=== PATIENT | female | born 1965 | race Caucasian/White ===

== ENCOUNTER 2016-07-16 06:59 | Emergency (ER) | payer BC ==
[~2016-07-16] VITALS: Ht 165.1 cm; Wt 66.8 kg
[2016-07-16] MEDS ORDERED: OMEPRAZOLE40 M1 PO (07:27)
[2016-07-16] MEDS ORDERED: MIRALAX17 GM PO (07:27)
[2016-07-16] MEDS ORDERED: LO-DOSE ASPIRIN81 M2 PO (07:28)
[2016-07-16] MEDS ORDERED: TYLENOL ARTHRI650 MG PO (07:28)
[2016-07-16] MEDS ORDERED: REGLAN10 MG PO (08:30)
[2016-07-16] MEDS ORDERED: FIORICET,ESG1 TABLET PO (08:30)
[2016-07-16 08:41] VITALS: BP 129/81
== END 2016-07-16 08:48 | disposition home or self-care (01) ==
LOC: EME 06:59
DX: R51 Headache (principal); R03.0 Elevated blood-pressure reading, without diagnosis of hypertension
CPT/HCPCS: 70450; 99281; 99284

== ENCOUNTER → 2017-02-03 | Outpatient (CLI) | payer BC ==
[~2017-02-03] MED LIST: FIORICET,ESG1 TABLET PO; LO-DOSE ASPIRIN81 M2 PO; MIRALAX17 GM PO; OMEPRAZOLE40 M1 PO; REGLAN10 MG PO; TYLENOL ARTHRI650 MG PO
== END | disposition home or self-care (01) ==
LOC: NUC 09:25
DX: R10.13 Epigastric pain (principal); K59.00 Constipation, unspecified; Z86.010 Personal history of colon polyps
CPT/HCPCS: 78226; A9537

== ENCOUNTER 2017-06-19 10:45 | Inpatient (IN) | payer BC ==
[~2017-06-19] VITALS: Ht 165.1 cm; Wt 60.0 kg
[2017-06-19 11:37] LABS: BASOPHIL (%) 0.2 % (0-1); EOSINOPHIL (%) 0 % (0-5); HEMATOCRIT 42.2 % (36.0-46.0); HEMOGLOBIN 14.3 G/DL (11.9-15.5); IMMATURE GRANULOCYTE (%) 0.2 % (0.0-0.7); LYMPHOCYTE (%) 20.3 % (15-42); LYMPHOCYTE COUNT 1.2 K/uL (1.0-2.8); MCH 32.6 PG (29.0-34.0); MCHC 33.9 G/DL (30.0-36.0); MCV 96.3 FL (83-99); MONOCYTE COUNT 0.4 K/uL (0-0.8); NEUTROPHIL (%) 73.3 % (45-76); NEUTROPHIL COUNT 4.4 K/uL (1.8-6.4); PLATELET COUNT 295 K/uL (156-360); RBC DIS.WIDTH-CV 11.6 % (11.8-14.6); RBC DIS.WIDTH-SD 41.1 % (39-53); RED BLOOD COUNT 4.38 M/uL (3.80-5.20)
[2017-06-19 11:50] LABS: CHLORIDE 106 mEq/L (99-109); SODIUM 141 mEq/L (136-147)
[2017-06-19 11:51] LABS: GLUCOSE 88 mg/dL (70-99)
[2017-06-19 11:54] LABS: SERUM ETHYL ALCOHOL < 10 mg/dL
[2017-06-19 11:55] LABS: CREATININE 0.7 mg/dL (0.6-1.3); GFR ESTIMATE (CALCULATED) > 59 mL/min/
[2017-06-19 11:56] LABS: UREA NITROGEN (BUN) 19 mg/dL (9-23)
[2017-06-19 13:17] LABS: APPEARANCE CLEAR ((CLEAR)); BILIRUBIN NEGATIVE; BLOOD NEGATIVE; COLOR YELLOW ((YELLOW)); GLUCOSE (STRIP) NEGATIVE; KETONES 20; LEUKOCYTES NEGATIVE; NITRITE NEGATIVE; PROTEIN (STRIP) NEGATIVE; SPECIFIC GRAVITY 1.012 (1.000-1.030); UROBILINOGEN 0.2 MG/DL (0.2-1.0)
[2017-06-19 13:26] LABS: AMPHETAMINE NEGATIVE (500 ng/mL); BARBITURATES NEGATIVE (200 ng/mL); BENZODIAZEPINES NEGATIVE (150 ng/mL); BUPRENORPHINE NEGATIVE (10 ng/mL); COCAINE NEGATIVE (150 ng/mL); METHADONE NEGATIVE (200 ng/mL); METHAMPHETAMINE NEGATIVE (500 ng/mL); OPIATES (MORPHINE) NEGATIVE (100 ng/mL); OXYCODONE NEGATIVE (100 ng/mL); PHENCYCLIDINE NEGATIVE (25 ng/mL); PROPOXYPHENE NEGATIVE (300 ng/mL); THC CANNABINOIDS NEGATIVE (50 ng/mL); TRICYCLIC ANTIDEPRESSANTS NEGATIVE (300 ng/mL)
[2017-06-19 14:44] VITALS: BP 122/60
[2017-06-19 14:50] VITALS: BP 122/60
[2017-06-19 16:03] VITALS: BP 123/84
[2017-06-20 08:30] VITALS: BP 114/75
[2017-06-20 15:35] VITALS: BP 119/56
[2017-06-21 08:21] VITALS: BP 93/52
[2017-06-21 15:29] VITALS: BP 143/79
[2017-06-22 08:15] VITALS: BP 121/77
[2017-06-22 15:41] VITALS: BP 125/57
[2017-06-23 07:58] VITALS: BP 114/68
[2017-06-23] MEDS ORDERED: HYDROXYZINE PAM25 MG PO (10:00)
== END 2017-06-23 11:05 | disposition home or self-care (01) | DRG 882 ==
LOC: EME 10:45 → EDOF 12:35 → 1WEST 12:35 → ENRESERV 14:29 → 1WEST 14:29
PROVIDERS: Emergency Medicine
DX: F43.23 Adjustment disorder with mixed anxiety and depressed mood (principal); F41.1 Generalized anxiety disorder; F60.9 Personality disorder, unspecified; R45.851 Suicidal ideations; G43.909 Migraine, unspecified, not intractable, without status migrainosus; Z81.8 Family history of other mental and behavioral disorders; Z91.5 Personal history of self-harm; Z79.82 Long term (current) use of aspirin; Z88.2 Allergy status to sulfonamides; Z91.040 Latex allergy status
CPT/HCPCS: 80048; 81003; 85025; 90839; 97150 GO; 97165 GO; 99281; 99284; G0480; Q0177

== ENCOUNTER → 2017-07-04 | Outpatient (CLI) | payer BC ==
[~2017-07-04] MED LIST changes: +HYDROXYZINE PAM25 MG PO
== END | disposition home or self-care (01) ==
LOC: NUC 06-20 08:30
DX: R10.13 Epigastric pain (principal); K59.00 Constipation, unspecified
CPT/HCPCS: 78264; A9541

== ENCOUNTER 2017-07-27 10:29 | Emergency (ER) | payer BC ==
[~2017-07-27] VITALS: Ht 165.1 cm; Wt 56.4 kg
[2017-07-27 11:24] LABS: HEMATOCRIT 44.3 % (36.0-46.0); HEMOGLOBIN 15.1 G/DL (11.9-15.5); MCH 32.1 PG (29.0-34.0); MCHC 34.1 G/DL (30.0-36.0); MCV 94.3 FL (83-99); PLATELET COUNT 284 K/uL (156-360); RBC DIS.WIDTH-CV 11.3 % (11.8-14.6); RBC DIS.WIDTH-SD 39.2 % (39-53); WHITE BLOOD COUNT 5.5 K/uL (4.1-10.2)
[2017-07-27 11:29] LABS: APPEARANCE CLOUDY ((CLEAR)); BILIRUBIN NEGATIVE; BLOOD NEGATIVE; COLOR YELLOW ((YELLOW)); GLUCOSE (STRIP) NEGATIVE; KETONES 80; LEUKOCYTES TRACE; NITRITE NEGATIVE; PROTEIN (STRIP) 30; SPECIFIC GRAVITY 1.016 (1.000-1.030); UROBILINOGEN 0.2 MG/DL (0.2-1.0)
[2017-07-27 11:32] LABS: BACTERIA RARE /HPF; EPITHELIAL CELLS 3+ /HPF; HYALINE CASTS 0-5 /LPF; MUCUS 4+ /LPF; RED BLOOD CELLS 0-5 /HPF (0-5); UCUL ADDED? YES
[2017-07-27 11:34] LABS: ALBUMIN 4.5 g/dL (3.2-4.8)
[2017-07-27 11:35] LABS: CHLORIDE 104 mEq/L (99-109); POTASSIUM 4.3 mEq/L (3.7-5.4); SODIUM 142 mEq/L (136-147)
[2017-07-27 11:37] LABS: GLUCOSE 93 mg/dL (70-99); TOTAL PROTEIN 7.7 g/dL (6.4-8.3)
[2017-07-27 11:39] LABS: TOTAL BILIRUBIN 0.7 mg/dL (0.0-1.0)
[2017-07-27 11:40] LABS: ALKALINE PHOSPHATASE 87 IU/L (3-129)
[2017-07-27 11:41] LABS: CREATININE 0.7 mg/dL (0.6-1.3); GFR ESTIMATE (CALCULATED) > 59 mL/min/
[2017-07-27 11:42] LABS: AST (GOT) 17 IU/L (2-34); UREA NITROGEN (BUN) 8 mg/dL (9-23)
[2017-07-27 11:44] LABS: ALT (GPT) 16 IU/L (3-49); LIPASE 26 U/L (1.0-51.0)
[2017-07-27 13:29] LABS: QUANTITATIVE HCG 4.5 MIU/ML
[2017-07-27] MEDS ORDERED: ULTRAM50 MG PO (15:08)
[2017-07-27 15:39] VITALS: BP 112/69
== END 2017-07-27 15:39 | disposition home or self-care (01) ==
LOC: EME 10:29
DX: R10.9 Unspecified abdominal pain (principal); G89.29 Other chronic pain; M79.7 Fibromyalgia; F41.9 Anxiety disorder, unspecified; F32.9 Major depressive disorder, single episode, unspecified; Z79.82 Long term (current) use of aspirin; Z91.040 Latex allergy status; Z88.2 Allergy status to sulfonamides; Z88.8 Allergy status to other drugs, medicaments and biological substances
CPT/HCPCS: 80053; 81003; 83690; 84702; 85027; 87086; 99281; 99285; J7030

== ENCOUNTER 2017-07-29 12:31 | Observation (INO) | payer BC ==
[~2017-07-29] VITALS: Ht 165.1 cm; Wt 58.2 kg
[~2017-07-29 12:31] MED LIST changes: +ULTRAM50 MG PO
[2017-07-29 12:54] LABS: APPEARANCE CLEAR ((CLEAR)); BILIRUBIN NEGATIVE; BLOOD NEGATIVE; COLOR STRAW ((YELLOW)); GLUCOSE (STRIP) 150; KETONES NEGATIVE; LEUKOCYTES NEGATIVE; NITRITE NEGATIVE; PROTEIN (STRIP) NEGATIVE; SPECIFIC GRAVITY 1.008 (1.000-1.030); UCUL ADDED? NO; UROBILINOGEN 0.2 MG/DL (0.2-1.0)
[2017-07-29 13:56] LABS: HEMATOCRIT 39.4 % (36.0-46.0); HEMOGLOBIN 13.7 G/DL (11.9-15.5); MCH 32.4 PG (29.0-34.0); MCHC 34.8 G/DL (30.0-36.0); MCV 93.1 FL (83-99); PLATELET COUNT 253 K/uL (156-360); RBC DIS.WIDTH-CV 11.5 % (11.8-14.6); RBC DIS.WIDTH-SD 38.8 % (39-53); RED BLOOD COUNT 4.23 M/uL (3.80-5.20)
[2017-07-29 14:10] LABS: ALBUMIN 4.2 g/dL (3.2-4.8); CHLORIDE 105 mEq/L (99-109); SODIUM 142 mEq/L (136-147)
[2017-07-29 14:12] LABS: GLUCOSE 94 mg/dL (70-99)
[2017-07-29 14:15] LABS: TOTAL BILIRUBIN 0.3 mg/dL (0.0-1.0)
[2017-07-29 14:16] LABS: ALKALINE PHOSPHATASE 72 IU/L (3-129); CREATININE 0.7 mg/dL (0.6-1.3); GFR ESTIMATE (CALCULATED) > 59 mL/min/
[2017-07-29 14:17] LABS: UREA NITROGEN (BUN) 15 mg/dL (9-23)
[2017-07-29 14:18] LABS: AST (GOT) 17 IU/L (2-34)
[2017-07-29 14:19] LABS: ALT (GPT) 13 IU/L (3-49)
[2017-07-29 14:25] LABS: QUANTITATIVE HCG < 4.0 MIU/ML
[2017-07-29] MEDS ORDERED: SELENIUM200 MCG PO (17:36)
[2017-07-29] MEDS ORDERED: ESGIC 50-325-41 EAC1 PO (17:36)
[2017-07-29] MEDS ORDERED: FISH OIL 500 M1 EAC2 PO (17:38)
[2017-07-29] MEDS ORDERED: MELATONIN3 MG PO (17:39)
[2017-07-29] MEDS ORDERED: ACID CONTROL150 MG PO (17:39)
[2017-07-29] MEDS ORDERED: MULTIVITAM9 MG/15 M1 PO (17:39)
[2017-07-29] MEDS ORDERED: PROBIOTIC1 EAC1 PO (17:40)
[2017-07-29 17:42] LABS: AMYLASE 78 IU/L (1-118)
[2017-07-29 17:51] LABS: LIPASE 22 U/L (1.0-51.0)
[2017-07-29 18:15] VITALS: BP 120/66
[2017-07-30] VITALS: BP 98/62
[2017-07-30 04:40] VITALS: BP 106/56
[2017-07-30 05:31] LABS: BASOPHIL (%) 0.4 % (0-1); EOSINOPHIL (%) 0.4 % (0-5); HEMATOCRIT 37.3 % (36.0-46.0); HEMOGLOBIN 12.3 G/DL (11.9-15.5); IMMATURE GRANULOCYTE (%) 0.2 % (0.0-0.7); LYMPHOCYTE (%) 42.4 % (15-42); LYMPHOCYTE COUNT 2.2 K/uL (1.0-2.8); MCH 31.4 PG (29.0-34.0); MCV 95.2 FL (83-99); MONOCYTE (%) 7.1 % (3-12); MONOCYTE COUNT 0.4 K/uL (0-0.8); NEUTROPHIL (%) 49.5 % (45-76); NEUTROPHIL COUNT 2.6 K/uL (1.8-6.4); PLATELET COUNT 229 K/uL (156-360); RBC DIS.WIDTH-CV 11.7 % (11.8-14.6); RBC DIS.WIDTH-SD 40.1 % (39-53); RED BLOOD COUNT 3.92 M/uL (3.80-5.20); WHITE BLOOD COUNT 5.2 K/uL (4.1-10.2)
[2017-07-30 05:56] LABS: ALBUMIN 3.7 G/DL (3.2-4.8); ALKALINE PHOSPHATASE 55 IU/L (3-129); ALT (GPT) 11 IU/L (3-49); AST (GOT) 14 IU/L (2-34); CHLORIDE 107 MEQ/L (99-109); CREATININE 0.6 MG/DL (0.6-1.3); GFR ESTIMATE (CALCULATED) > 59 mL/min/; GLUCOSE 85 mg/dL (70-99); POTASSIUM 4.2 MEQ/L (3.7-5.4); SODIUM 144 MEQ/L (136-147); TOTAL BILIRUBIN 0.4 MG/DL (0.0-1.0); TOTAL PROTEIN 5.6 G/DL (6.4-8.3); UREA NITROGEN (BUN) 8 mg/dL (9-23)
[2017-07-30 07:45] VITALS: BP 108/62
[2017-07-30 16:58] VITALS: BP 124/66
[2017-07-30 18:00] VITALS: BP 129/73
[2017-07-30 23:44] VITALS: BP 104/61
[2017-07-31 07:00] VITALS: BP 118/77
[2017-07-31 11:52] VITALS: BP 114/73
[2017-07-31] MEDS ORDERED: SUCRALFATE1 GM PO (13:53)
[2017-07-31] MEDS ORDERED: PANTOPRAZOLE SO40 MG PO (13:53)
[2017-07-31] MEDS ORDERED: BENTYL10 MG PO (13:53)
[2017-07-31] MEDS ORDERED: DIAZEPAM5 MG PO (13:53)
== END 2017-07-31 14:48 | disposition home or self-care (01) ==
LOC: EME 12:31 → EDOF 16:49 → 4SOUTH 16:49 → EDOF 16:49 → ENRESERV 17:00 → 4SOUTH 18:19
PROVIDERS: Hospitalist
DX: R11.0 Nausea (principal); R10.9 Unspecified abdominal pain; G89.29 Other chronic pain; K29.70 Gastritis, unspecified, without bleeding; R63.4 Abnormal weight loss; R13.10 Dysphagia, unspecified; F43.20 Adjustment disorder, unspecified; K59.00 Constipation, unspecified; F41.1 Generalized anxiety disorder; Z86.010 Personal history of colon polyps; Z88.2 Allergy status to sulfonamides; Z88.8 Allergy status to other drugs, medicaments and biological substances; Z91.013 Allergy to seafood; Z91.040 Latex allergy status
CPT/HCPCS: 74177; 80053; 81003; 82150; 83690; 84702; 85025; 85027; 87169; 88305; 88342 TC; 99281; 99285; C9113; G0378; J2250; J2405; J7030; J7050

== ENCOUNTER 2017-11-16 20:35 | Inpatient (IN) | payer BC ==
[~2017-11-16] VITALS: Ht 165.1 cm; Wt 55.4 kg
[~2017-11-16 20:35] MED LIST changes: +ACID CONTROL150 MG PO; +BENTYL10 MG PO; +DIAZEPAM5 MG PO; +ESGIC 50-325-41 EAC1 PO; +FISH OIL 500 M1 EAC2 PO; +MELATONIN3 MG PO; +MULTIVITAM9 MG/15 M1 PO; +PANTOPRAZOLE SO40 MG PO; +PROBIOTIC1 EAC1 PO; +SELENIUM200 MCG PO; +SUCRALFATE1 GM PO
[2017-11-16 20:52] LABS: BASOPHIL (%) 0.2 % (0-1); EOSINOPHIL (%) 0.2 % (0-5); HEMATOCRIT 36.4 % (36.0-46.0); HEMOGLOBIN 12.1 G/DL (11.9-15.5); IMMATURE GRANULOCYTE (%) 0.5 % (0.0-0.7); LYMPHOCYTE COUNT 1.6 K/uL (1.0-2.8); MCH 33.2 PG (29.0-34.0); MCHC 33.2 G/DL (30.0-36.0); MONOCYTE (%) 3.7 % (3-12); MONOCYTE COUNT 0.2 K/uL (0-0.8); NEUTROPHIL (%) 70.4 % (45-76); NEUTROPHIL COUNT 4.6 K/uL (1.8-6.4); PLATELET COUNT 237 K/uL (156-360); RBC DIS.WIDTH-CV 11.9 % (11.8-14.6); RBC DIS.WIDTH-SD 43.8 % (39-53); RED BLOOD COUNT 3.64 M/uL (3.80-5.20); WHITE BLOOD COUNT 6.5 K/uL (4.1-10.2)
[2017-11-16 20:57] LABS: AMYLASE 131 IU/L (1-118); CHLORIDE 107 mEq/L (99-109); POTASSIUM 3.5 mEq/L (3.7-5.4); SODIUM 142 mEq/L (136-147)
[2017-11-16 20:58] LABS: GLUCOSE 181 mg/dL (70-99)
[2017-11-16 21:01] LABS: SERUM ETHYL ALCOHOL < 10 mg/dL
[2017-11-16 21:02] LABS: CREATININE 1.2 mg/dL (0.6-1.3); GFR ESTIMATE (CALCULATED) 50 mL/min/
[2017-11-16 21:03] LABS: UREA NITROGEN (BUN) 22 mg/dL (9-23)
[2017-11-16 21:05] LABS: LIPASE 221 U/L (1.0-51.0)
[2017-11-16 21:12] LABS: QUANTITATIVE HCG 4.1 MIU/ML
[2017-11-16 21:25] LABS: APPEARANCE SL.HAZY ((CLEAR)); BILIRUBIN NEGATIVE; BLOOD NEGATIVE; COLOR YELLOW ((YELLOW)); GLUCOSE (STRIP) NEGATIVE; KETONES NEGATIVE; LEUKOCYTES NEGATIVE; NITRITE NEGATIVE; PROTEIN (STRIP) 30; SPECIFIC GRAVITY 1.023 (1.000-1.030)
[2017-11-16 21:49] LABS: AMPHETAMINE NEGATIVE (500 ng/mL); BARBITURATES NEGATIVE (200 ng/mL); BENZODIAZEPINES NEGATIVE (150 ng/mL); BUPRENORPHINE NEGATIVE (10 ng/mL); COCAINE NEGATIVE (150 ng/mL); METHADONE NEGATIVE (200 ng/mL); METHAMPHETAMINE NEGATIVE (500 ng/mL); OPIATES (MORPHINE) NEGATIVE (100 ng/mL); OXYCODONE NEGATIVE (100 ng/mL); PHENCYCLIDINE NEGATIVE (25 ng/mL); PROPOXYPHENE NEGATIVE (300 ng/mL); THC CANNABINOIDS NEGATIVE (50 ng/mL); TRICYCLIC ANTIDEPRESSANTS NEGATIVE (300 ng/mL)
[2017-11-16 22:13] LABS: BACTERIA 2+ /HPF; EPITHELIAL CELLS 1+ /HPF; MUCUS NONE SEEN /LPF; RED BLOOD CELLS 0-5 /HPF (0-5); UCUL ADDED? YES
[2017-11-16 23:20] VITALS: BP 112/58
[2017-11-16 23:25] VITALS: BP 112/58
[2017-11-16 23:50] LABS: BASE EXCESS -5.4 mEq/L (-3 to +3); METHEMOGLOBIN 0.8 % (0-1.5); O2 SATURATION (CALCULATED) 99.1 % (95-99); PCO2 38 mm Hg (35-45); PO2 368 mm Hg (80-100); SITE L FEM; pH 7.33 (7.35-7.45)
[2017-11-16 23:51] LABS: COMMENTS - BLOOD GASES C+; DEVICE VENT; FI02 100 %; MECHANICAL RATE 12 resp/min; MODE ACVC; PEEP 5 CM/H20; TIDAL VOLUME 500 ML; TOTAL RESP RATE 18 resp/min
[2017-11-17] VITALS (27 sets, daily range): BP systolic 96–164; BP diastolic 50–94
[2017-11-17 00:53] LABS: INTER. NORMALIZED RATIO 1.3
[2017-11-17 00:55] LABS: PTT 32.7 SEC (25-37)
[2017-11-17 00:57] LABS: HEMATOCRIT 37.3 % (36.0-46.0); HEMOGLOBIN 12.7 G/DL (11.9-15.5); MCH 30.9 PG (29.0-34.0); RBC DIS.WIDTH-CV 15.1 % (11.8-14.6); RBC DIS.WIDTH-SD 49.9 % (39-53); RED BLOOD COUNT 4.11 M/uL (3.80-5.20); WHITE BLOOD COUNT 5.7 K/uL (4.1-10.2)
[2017-11-17 01:09] LABS: ALBUMIN 2.4 g/dL (3.2-4.8); CHLORIDE 113 mEq/L (99-109); SODIUM 148 mEq/L (136-147)
[2017-11-17 01:10] LABS: MAGNESIUM 1.7 mg/dL (1.3-2.7)
[2017-11-17 01:12] LABS: TOTAL PROTEIN 3.7 g/dL (6.4-8.3)
[2017-11-17 01:13] LABS: TOTAL BILIRUBIN 0.7 mg/dL (0.0-1.0)
[2017-11-17 01:15] LABS: ALKALINE PHOSPHATASE 39 IU/L (3-129); CREATININE 1.1 mg/dL (0.6-1.3); GFR ESTIMATE (CALCULATED) 56 mL/min/; PHOSPHORUS 7.1 mg/dL (2.5-4.9)
[2017-11-17 01:16] LABS: UREA NITROGEN (BUN) 21 mg/dL (9-23)
[2017-11-17 01:17] LABS: AST (GOT) 35 IU/L (2-34)
[2017-11-17 01:18] LABS: ALT (GPT) 42 IU/L (3-49); GLUCOSE 330 mg/dL (70-99)
[2017-11-17 01:44] LABS: BASOPHIL (%) 0.2 % (0-1); EOSINOPHIL (%) 0.2 % (0-5); IMMATURE GRANULOCYTE (%) 0.7 % (0.0-0.7); LYMPHOCYTE (%) 16.6 % (15-42); MONOCYTE (%) 4.7 % (3-12); MONOCYTE COUNT 0.3 K/uL (0-0.8); NEUTROPHIL (%) 77.6 % (45-76); NEUTROPHIL COUNT 4.4 K/uL (1.8-6.4)
[2017-11-17 01:46] LABS: ANISOCYTOSIS NONE SEEN; BURR CELLS 3+; GIANT PLATELETS 1+; OVALOCYTES 1+; PLAT.SUFFICIENCY VERY DECREASED; POIKILOCYTOSIS 3+
[2017-11-17 02:37] LABS: MCV 90.8 FL (83-99); PLATELET COUNT 65 K/uL (156-360)
[2017-11-17 05:26] LABS: INTER. NORMALIZED RATIO 1.1
[2017-11-17 05:28] LABS: PTT 25.1 SEC (25-37)
[2017-11-17 05:36] LABS: COMMENTS - BLOOD GASES C+; DEVICE VENT; FI02 30 %; MECHANICAL RATE 12 resp/min; MODE ACVC; PEEP 5 CM/H20; SITE A-LINE; TIDAL VOLUME 500 ML; TOTAL RESP RATE 12 resp/min
[2017-11-17 05:37] LABS: BICARBONATE 25.4 mEq/L (22-26); PCO2 43 mm Hg (35-45); PO2 137 mm Hg (80-100); pH 7.38 (7.35-7.45)
[2017-11-17 05:38] LABS: BASE EXCESS 0 mEq/L (-3 to +3)
[2017-11-17 05:42] LABS: ALBUMIN 2.7 G/DL (3.2-4.8); ALKALINE PHOSPHATASE 34 IU/L (3-129); ALT (GPT) 33 IU/L (3-49); AST (GOT) 30 IU/L (2-34); CHLORIDE 111 MEQ/L (99-109); CREATININE 1.1 MG/DL (0.6-1.3); GFR ESTIMATE (CALCULATED) 56 mL/min/; GLUCOSE 223 mg/dL (70-99); POTASSIUM 4.2 MEQ/L (3.7-5.4); SODIUM 148 MEQ/L (136-147); TOTAL BILIRUBIN 0.7 MG/DL (0.0-1.0); TOTAL PROTEIN 4.2 G/DL (6.4-8.3); UREA NITROGEN (BUN) 20 mg/dL (9-23)
[2017-11-17 05:48] LABS: MCH 30.9 PG (29.0-34.0); WHITE BLOOD COUNT 2.9 K/uL (4.1-10.2)
[2017-11-17 05:49] LABS: MCHC 34.8 G/DL (30.0-36.0); PLATELET COUNT 52 K/uL (156-360); RBC DIS.WIDTH-CV 14.9 % (11.8-14.6); RBC DIS.WIDTH-SD 48.1 % (39-53)
[2017-11-17 05:50] LABS: HEMOGLOBIN 7.3 G/DL (11.9-15.5); RED BLOOD COUNT 2.36 M/uL (3.80-5.20)
[2017-11-17 08:50] LABS: LACTATE DEHYDROGENASE 169 IU/L (20-246)
[2017-11-17 13:29] LABS: HEMATOCRIT 26.5 % (36.0-46.0); HEMOGLOBIN 9.2 G/DL (11.9-15.5); MCH 31.5 PG (29.0-34.0); MCHC 34.7 G/DL (30.0-36.0); MCV 90.8 FL (83-99); RBC DIS.WIDTH-CV 14.9 % (11.8-14.6); RBC DIS.WIDTH-SD 48.8 % (39-53); WHITE BLOOD COUNT 6.5 K/uL (4.1-10.2)
[2017-11-17 13:37] LABS: PLATELET COUNT 106 K/uL (156-360); RED BLOOD COUNT 2.92 M/uL (3.80-5.20)
[2017-11-17 13:47] LABS: INTER. NORMALIZED RATIO 1.2
[2017-11-17 13:50] LABS: PTT 26.5 SEC (25-37)
[2017-11-17 14:04] LABS: ALBUMIN 2.7 G/DL (3.2-4.8); ALKALINE PHOSPHATASE 34 IU/L (3-129); ALT (GPT) 33 IU/L (3-49); AST (GOT) 38 IU/L (2-34); CHLORIDE 110 MEQ/L (99-109); GFR ESTIMATE (CALCULATED) > 59 mL/min/; GLUCOSE 174 mg/dL (70-99); MAGNESIUM 1.5 mg/dl (1.3-2.7); POTASSIUM 4.5 MEQ/L (3.7-5.4); SODIUM 148 MEQ/L (136-147); TOTAL PROTEIN 4.4 G/DL (6.4-8.3); UREA NITROGEN (BUN) 21 mg/dL (9-23)
[2017-11-17 14:10] LABS: BASOPHIL (%) 0 % (0-1); EOSINOPHIL (%) 0 % (0-5); IMMATURE GRANULOCYTE (%) 0.2 % (0.0-0.7); LYMPHOCYTE (%) 4.1 % (15-42); LYMPHOCYTE COUNT 0.3 K/uL (1.0-2.8); MONOCYTE (%) 7.8 % (3-12); MONOCYTE COUNT 0.5 K/uL (0-0.8); NEUTROPHIL (%) 87.9 % (45-76); NEUTROPHIL COUNT 5.7 K/uL (1.8-6.4)
[2017-11-17 14:13] LABS: TOTAL BILIRUBIN 0.5 MG/DL (0.0-1.0)
[2017-11-17 14:30] LABS: FIBRINOGEN 303 mg/dL (150-450)
[2017-11-17 14:41] LABS: HEMOGLOBIN A1c (GLYCOHEMOGLOB) 5.6 % (Below 5.7)
[2017-11-17 20:22] LABS: HEMATOCRIT 24.4 % (36.0-46.0); HEMOGLOBIN 8.5 G/DL (11.9-15.5); MCH 31.5 PG (29.0-34.0); MCHC 34.8 G/DL (30.0-36.0); MCV 90.4 FL (83-99); PLATELET COUNT 100 K/uL (156-360); RBC DIS.WIDTH-CV 15.1 % (11.8-14.6); RBC DIS.WIDTH-SD 49.4 % (39-53); WHITE BLOOD COUNT 13.2 K/uL (4.1-10.2)
[2017-11-17 20:28] LABS: INTER. NORMALIZED RATIO 1.3
[2017-11-17 20:30] LABS: PTT 25.8 SEC (25-37)
[2017-11-18] VITALS: BP 88/50
[2017-11-18 05:21] LABS: HEMATOCRIT 20.6 % (36.0-46.0); HEMOGLOBIN 7.2 G/DL (11.9-15.5); MCH 31.3 PG (29.0-34.0); MCV 89.6 FL (83-99); PLATELET COUNT 105 K/uL (156-360); RBC DIS.WIDTH-CV 15.4 % (11.8-14.6); RBC DIS.WIDTH-SD 50.3 % (39-53); WHITE BLOOD COUNT 13.6 K/uL (4.1-10.2)
[2017-11-18 05:46] LABS: ALBUMIN 2.4 G/DL (3.2-4.8); ALKALINE PHOSPHATASE 30 IU/L (3-129); ALT (GPT) 29 IU/L (3-49); AST (GOT) 40 IU/L (2-34); CHLORIDE 110 MEQ/L (99-109); CREATININE 0.7 MG/DL (0.6-1.3); GFR ESTIMATE (CALCULATED) > 59 mL/min/; GLUCOSE 134 mg/dL (70-99); POTASSIUM 4.1 MEQ/L (3.7-5.4); SODIUM 148 MEQ/L (136-147); UREA NITROGEN (BUN) 22 mg/dL (9-23)
[2017-11-18 05:56] LABS: TOTAL BILIRUBIN 0.7 MG/DL (0.0-1.0)
[2017-11-18 06:31] LABS: ABS NEUTROPHIL COUNT 11.4; ANISOCYTOSIS NONE SEEN; BAND NEUTROPHILS 28.3 % (0-8.0); EOSINOPHIL ABS CT 0; LYMPHOCYTES 8.8 % (15.0-45.0); METAMYELOCYTES 4.4 %; MONOCYTES 2.7 % (0-9.0); NUCLEATED RBC'S 0.9; PLAT.SUFFICIENCY DECREASED; SEG.NEUTROPHILS 55.8 % (46.0-76.0)
[2017-11-18 08:00] VITALS: BP 116/69
[2017-11-18 08:10] LABS: COMMENTS - BLOOD GASES C+; CONTINUOUS POS AIRWAY PRESSURE 5 cm H2O; DEVICE VENT; FI02 30 %; MODE SPONT; PRES. SUPPORT 10 CM/H2O; SITE ALINE; TOTAL RESP RATE 12 resp/min
[2017-11-18 08:11] LABS: BASE EXCESS 5.5 mEq/L (-3 to +3); CARBOXY HGB 1.6 % (0-5); METHEMOGLOBIN 1.1 % (0-1.5); O2 SATURATION (CALCULATED) 94.8 % (95-99); PCO2 50 mm Hg (35-45); PO2 78 mm Hg (80-100)
[2017-11-18 12:00] VITALS: BP 139/74
[2017-11-18 18:41] LABS: HEMATOCRIT 22.5 % (36.0-46.0); HEMOGLOBIN 7.8 G/DL (11.9-15.5); MCH 31.5 PG (29.0-34.0); MCHC 34.7 G/DL (30.0-36.0); MCV 90.7 FL (83-99); PLATELET COUNT 113 K/uL (156-360); RBC DIS.WIDTH-CV 15.5 % (11.8-14.6); RBC DIS.WIDTH-SD 51.5 % (39-53); RED BLOOD COUNT 2.48 M/uL (3.80-5.20); WHITE BLOOD COUNT 16.8 K/uL (4.1-10.2)
[2017-11-19] VITALS (14 sets, daily range): BP systolic 117–168; BP diastolic 75–105
[2017-11-19 05:14] LABS: MCH 31.1 PG (29.0-34.0); MCHC 33.3 G/DL (30.0-36.0); MCV 93.3 FL (83-99); PLATELET COUNT 118 K/uL (156-360); RBC DIS.WIDTH-CV 15.7 % (11.8-14.6); RBC DIS.WIDTH-SD 53.8 % (39-53); RED BLOOD COUNT 2.25 M/uL (3.80-5.20); WHITE BLOOD COUNT 14.4 K/uL (4.1-10.2)
[2017-11-19 05:43] LABS: INTER. NORMALIZED RATIO 1.3
[2017-11-19 05:45] LABS: PTT 24.8 SEC (25-37)
[2017-11-19 06:11] LABS: ABS NEUTROPHIL COUNT 13.4; ANISOCYTOSIS NONE SEEN; BAND NEUTROPHILS 26.3 % (0-8.0); EOSINOPHIL ABS CT 0; GIANT PLATELETS 2+; LYMPHOCYTES 3.5 % (15.0-45.0); METAMYELOCYTES 2.6 %; MONOCYTES 0.9 % (0-9.0); PLAT.SUFFICIENCY ADEQUATE; SEG.NEUTROPHILS 66.7 % (46.0-76.0)
[2017-11-19 06:49] LABS: ALBUMIN 2.4 G/DL (3.2-4.8); ALKALINE PHOSPHATASE 44 IU/L (3-129); ALT (GPT) 33 IU/L (3-49); CHLORIDE 110 MEQ/L (99-109); CREATININE 0.5 MG/DL (0.6-1.3); GFR ESTIMATE (CALCULATED) > 59 mL/min/; POTASSIUM 3.5 MEQ/L (3.7-5.4); SODIUM 148 MEQ/L (136-147); TOTAL PROTEIN 4.3 G/DL (6.4-8.3); UREA NITROGEN (BUN) 25 mg/dL (9-23)
[2017-11-19 06:51] LABS: AST (GOT) 59 IU/L (2-34); GLUCOSE 92 mg/dL (70-99); MAGNESIUM 1.8 mg/dl (1.3-2.7); PHOSPHORUS 1.8 mg/dL (2.5-4.9); TOTAL BILIRUBIN 0.9 MG/DL (0.0-1.0)
[2017-11-19 13:05] LABS: HEMATOCRIT 28.4 % (36.0-46.0); MCV 90.7 FL (83-99)
[2017-11-19 13:06] LABS: HEMOGLOBIN 9.7 G/DL (11.9-15.5)
[2017-11-19 20:10] LABS: HEMATOCRIT 32.9 % (36.0-46.0); HEMOGLOBIN 11.3 G/DL (11.9-15.5); MCH 31.3 PG (29.0-34.0); MCHC 34.3 G/DL (30.0-36.0); MCV 91.1 FL (83-99); RBC DIS.WIDTH-CV 15.6 % (11.8-14.6); RBC DIS.WIDTH-SD 51.4 % (39-53); WHITE BLOOD COUNT 14.9 K/uL (4.1-10.2)
[2017-11-19 20:20] LABS: CHLORIDE 111 MEQ/L (99-109); POTASSIUM 3.6 MEQ/L (3.7-5.4); SODIUM 151 MEQ/L (136-147)
[2017-11-19 20:26] LABS: CREATININE 0.6 MG/DL (0.6-1.3); GFR ESTIMATE (CALCULATED) > 59 mL/min/; GLUCOSE 108 mg/dL (70-99); PHOSPHORUS 2.4 mg/dL (2.5-4.9); UREA NITROGEN (BUN) 26 mg/dL (9-23)
[2017-11-19 20:41] LABS: PLATELET COUNT 206 K/uL (156-360); RED BLOOD COUNT 3.61 M/uL (3.80-5.20)
[2017-11-20] VITALS (19 sets, daily range): BP systolic 115–159; BP diastolic 65–96
[2017-11-20 05:31] LABS: HEMATOCRIT 32.2 % (36.0-46.0); HEMOGLOBIN 10.8 G/DL (11.9-15.5); MCH 30.6 PG (29.0-34.0); MCHC 33.5 G/DL (30.0-36.0); MCV 91.2 FL (83-99); PLATELET COUNT 213 K/uL (156-360); RBC DIS.WIDTH-CV 15.8 % (11.8-14.6); RED BLOOD COUNT 3.53 M/uL (3.80-5.20); WHITE BLOOD COUNT 14.9 K/uL (4.1-10.2)
[2017-11-20 06:02] LABS: CHLORIDE 109 MEQ/L (99-109); CREATININE 0.5 MG/DL (0.6-1.3); GFR ESTIMATE (CALCULATED) > 59 mL/min/; GLUCOSE 104 mg/dL (70-99); MAGNESIUM 1.8 mg/dl (1.3-2.7); POTASSIUM 3.5 MEQ/L (3.7-5.4); SODIUM 149 MEQ/L (136-147); UREA NITROGEN (BUN) 25 mg/dL (9-23)
[2017-11-20 06:24] LABS: BASOPHIL (%) 0.1 % (0-1); EOSINOPHIL (%) 0 % (0-5); HEMATOLOGY COMMENT 1 SN; IMMATURE GRANULOCYTE (%) 0.3 % (0.0-0.7); LYMPHOCYTE (%) 4.2 % (15-42); LYMPHOCYTE COUNT 0.6 K/uL (1.0-2.8); MONOCYTE (%) 5.3 % (3-12); MONOCYTE COUNT 0.8 K/uL (0-0.8); NEUTROPHIL (%) 90.1 % (45-76); NEUTROPHIL COUNT 13.4 K/uL (1.8-6.4)
[2017-11-21 03:49] VITALS: BP 143/80
[2017-11-21 05:37] LABS: BASOPHIL (%) 0.1 % (0-1); EOSINOPHIL (%) 0.1 % (0-5); HEMATOCRIT 30.2 % (36.0-46.0); HEMOGLOBIN 9.9 G/DL (11.9-15.5); IMMATURE GRANULOCYTE (%) 0.7 % (0.0-0.7); LYMPHOCYTE (%) 4.4 % (15-42); LYMPHOCYTE COUNT 0.7 K/uL (1.0-2.8); MCH 30.6 PG (29.0-34.0); MCHC 32.8 G/DL (30.0-36.0); MCV 93.2 FL (83-99); MONOCYTE COUNT 1.1 K/uL (0-0.8); NEUTROPHIL (%) 87.7 % (45-76); NEUTROPHIL COUNT 14.1 K/uL (1.8-6.4); NRBC (%) 0.1 /100 WBC (0-0); PLATELET COUNT 206 K/uL (156-360); RBC DIS.WIDTH-CV 15.7 % (11.8-14.6); RBC DIS.WIDTH-SD 53.8 % (39-53); RED BLOOD COUNT 3.24 M/uL (3.80-5.20)
[2017-11-21 06:01] LABS: CHLORIDE 110 MEQ/L (99-109); CREATININE 0.4 MG/DL (0.6-1.3); GFR ESTIMATE (CALCULATED) > 59 mL/min/; GLUCOSE 101 mg/dL (70-99); MAGNESIUM 1.9 mg/dl (1.3-2.7); POTASSIUM 3.8 MEQ/L (3.7-5.4); SODIUM 151 MEQ/L (136-147); UREA NITROGEN (BUN) 20 mg/dL (9-23)
[2017-11-21 07:45] VITALS: BP 146/81
[2017-11-21 11:49] VITALS: BP 148/83
[2017-11-21 16:00] VITALS: BP 165/91
[2017-11-21 19:10] VITALS: BP 154/85
[2017-11-21 23:40] VITALS: BP 170/86
[2017-11-22 04:23] VITALS: BP 155/79
[2017-11-22 08:08] VITALS: BP 159/85
[2017-11-22 12:15] VITALS: BP 137/71
[2017-11-22 16:46] VITALS: BP 142/81
[2017-11-22 19:39] VITALS: BP 161/78
[2017-11-22 23:39] VITALS: BP 131/71
[2017-11-23 03:49] VITALS: BP 139/79
[2017-11-23 05:38] LABS: BASOPHIL (%) 0.2 % (0-1); EOSINOPHIL (%) 1.4 % (0-5); EOSINOPHIL COUNT 0.2 K/uL (0-0.3); HEMATOCRIT 35.2 % (36.0-46.0); HEMOGLOBIN 11.4 G/DL (11.9-15.5); LYMPHOCYTE (%) 10.3 % (15-42); LYMPHOCYTE COUNT 1.2 K/uL (1.0-2.8); MCH 30.7 PG (29.0-34.0); MCHC 32.4 G/DL (30.0-36.0); MCV 94.9 FL (83-99); MONOCYTE COUNT 1.3 K/uL (0-0.8); NEUTROPHIL (%) 75.1 % (45-76); NEUTROPHIL COUNT 8.6 K/uL (1.8-6.4); RBC DIS.WIDTH-CV 15.3 % (11.8-14.6); RBC DIS.WIDTH-SD 52.9 % (39-53); RED BLOOD COUNT 3.71 M/uL (3.80-5.20); WHITE BLOOD COUNT 11.5 K/uL (4.1-10.2)
[2017-11-23 05:40] LABS: PLATELET COUNT 333 K/uL (156-360)
[2017-11-23 05:49] LABS: CHLORIDE 110 MEQ/L (99-109); CREATININE 0.4 MG/DL (0.6-1.3); GFR ESTIMATE (CALCULATED) > 59 mL/min/; POTASSIUM 4.3 MEQ/L (3.7-5.4); SODIUM 144 MEQ/L (136-147); UREA NITROGEN (BUN) 18 mg/dL (9-23)
[2017-11-23 05:50] LABS: GLUCOSE 160 mg/dL (70-99)
[2017-11-23 07:13] VITALS: BP 141/83
[2017-11-23 12:04] VITALS: BP 136/76
[2017-11-23 16:21] VITALS: BP 138/61
[2017-11-23 19:43] VITALS: BP 170/79
[2017-11-23 23:15] VITALS: BP 134/75
[2017-11-24 04:28] VITALS: BP 135/75
[2017-11-24 08:18] VITALS: BP 134/84
[2017-11-24 11:25] VITALS: BP 137/87
[2017-11-24 15:56] VITALS: BP 131/83
[2017-11-24 19:50] VITALS: BP 127/85
[2017-11-24 23:15] VITALS: BP 150/85
[2017-11-25 03:20] VITALS: BP 135/88
[2017-11-25 09:00] VITALS: BP 153/80
[2017-11-25 17:06] VITALS: BP 135/77
[2017-11-25 18:31] VITALS: BP 152/86
[2017-11-26 03:41] VITALS: BP 131/68
[2017-11-26 07:34] VITALS: BP 144/88
[2017-11-26 11:25] VITALS: BP 142/77
[2017-11-26 15:35] VITALS: BP 137/73
[2017-11-26 16:18] LABS: C DIFF TOXIN NEGATIVE (NEGATIVE)
[2017-11-26 19:55] VITALS: BP 141/77
[2017-11-26 23:31] VITALS: BP 145/81
[2017-11-27 04:36] VITALS: BP 118/67
[2017-11-27 07:27] VITALS: BP 135/76
[2017-11-27 11:06] VITALS: BP 140/80
[2017-11-27 15:33] VITALS: BP 132/89
[2017-11-27 20:08] VITALS: BP 139/86
[2017-11-27 23:35] VITALS: BP 122/69
[2017-11-28 04:19] VITALS: BP 128/74
[2017-11-28 07:14] VITALS: BP 130/79
[2017-11-28 11:20] VITALS: BP 120/71
[2017-11-28] MEDS ORDERED: DOCUSATE SODIU100 MG PO (12:42)
[2017-11-28] MEDS ORDERED: ARIPIPRAZOLE5 MG PO (12:42)
[2017-11-28] MEDS ORDERED: POLYETHYLENE GL17 GM PO (12:43)
[2017-11-28] MEDS ORDERED: ROXICODONE5 MG PO (12:45)
[2017-11-28 15:53] VITALS: BP 153/87
== END 2017-11-28 16:49 | DRG 957 ==
LOC: TRA 20:35 → UNDODEPER 21:20 → TRA 21:20 → EME 21:24 → SDC 21:24 → 4WEST 23:21 → ENRESERVTM 11-20 13:33 → ENRESERV 11-20 13:33 → 4EAST 11-20 14:49 → ENRESERV 11-25 12:19 → 3EAST 11-25 17:55
PROVIDERS: Emergency Medicine; Obstetrics & Gynecology; Physician Assistant; Specialist; Surgery; Thoracic Surgery (Cardiothoracic Vascular Surgery)
DX: S27.2XXA Traumatic hemopneumothorax, initial encounter (principal); S36.039A Unspecified laceration of spleen, initial encounter; S35.291A Minor laceration of branches of celiac and mesenteric artery, initial encounter; S36.113A Laceration of liver, unspecified degree, initial encounter; S36.892A Contusion of other intra-abdominal organs, initial encounter; S22.32XA Fracture of one rib, left side, initial encounter for closed fracture; S36.239A Laceration of unspecified part of pancreas, unspecified degree, initial encounter; R57.8 Other shock; R57.1 Hypovolemic shock; D62 Acute posthemorrhagic anemia; E87.2 Acidosis; D69.59 Other secondary thrombocytopenia; E83.51 Hypocalcemia; F60.9 Personality disorder, unspecified; F41.1 Generalized anxiety disorder; F32.9 Major depressive disorder, single episode, unspecified; F43.10 Post-traumatic stress disorder, unspecified; J90 Pleural effusion, not elsewhere classified; I10 Essential (primary) hypertension; D61.818 Other pancytopenia; E87.0 Hyperosmolality and hypernatremia; E87.6 Hypokalemia; R60.1 Generalized edema; Z91.5 Personal history of self-harm; Z81.8 Family history of other mental and behavioral disorders; Y93.89 Activity, other specified; Y92.89 Other specified places as the place of occurrence of the external cause
CPT/HCPCS: 36600; 71045; 71046; 71260; 74177; 80048; 80048 91; 80053; 81003; 82150; 82330; 82948; 83010 90; 83036; 83605; 83615; 83690; 83735; 84100; 84702; 85014; 85018; 85025; 85025 91; 85027; 85384; 85610; 85730; 86850; 86900; 86901; 86920; 87070; 87086; 87205; 87493; 87641; 88305; 88307; 90732; 90832; 93005; 94002; 94003; 94640; 94760; 94799; 97530 GO; 99281; 99285; C1751; C1769; C9113; G0009; G0480; J0330; J0690; J1100; J1170; J1815; J2060; J2250; J2405; J2543; J2704; J2710; J2997; J3010; J3475; J3480; J7030; J7040; J7050; J7120; J7643; P9016; P9017; P9035; S0020; S0028; S0074

== ENCOUNTER 2017-11-28 14:15 | Inpatient (IN) | payer BC ==
[~2017-11-28] VITALS: Ht 165.1 cm; Wt 50.4 kg
[~2017-11-28 14:15] MED LIST changes: +ARIPIPRAZOLE5 MG PO; +DOCUSATE SODIU100 MG PO; +POLYETHYLENE GL17 GM PO; +ROXICODONE5 MG PO
[2017-11-28 17:09] VITALS: BP 136/69
[2017-11-29 09:07] VITALS: BP 135/79
[2017-11-30 07:30] VITALS: BP 115/68
[2017-11-30 15:10] VITALS: BP 124/73
[2017-12-01 08:02] VITALS: BP 123/76
[2017-12-01 16:18] VITALS: BP 138/87
[2017-12-02 08:03] VITALS: BP 131/69
[2017-12-02 16:16] VITALS: BP 141/78
[2017-12-03 07:58] VITALS: BP 129/73
[2017-12-03] MEDS ORDERED: OXYCODONE HCL5 MG PO (10:26)
[2017-12-03] MEDS ORDERED: ARIPIPRAZOLE5 MG PO (10:26)
[2017-12-03] MEDS ORDERED: DOCUSATE SODIU100 MG PO (10:26)
== END 2017-12-03 12:05 | disposition home or self-care (01) | DRG 885 ==
LOC: PSY 14:15 → EDSTATUS 14:45 → 1WEST 14:46 → ENRESERV 15:51 → 1WEST 16:58
DX: F31.81 Bipolar II disorder (principal); F60.9 Personality disorder, unspecified; G89.18 Other acute postprocedural pain; Z88.2 Allergy status to sulfonamides; Z91.040 Latex allergy status; Z91.5 Personal history of self-harm; Z81.8 Family history of other mental and behavioral disorders
CPT/HCPCS: 97150 GO; 97165 GO